=== PATIENT | male | born 1990 ===

== ENCOUNTER 2019-12-28 17:09 | Emergency (ER) | payer SELFPAY ==
--- NOTE | 2019-12-28 17:46 | RAD ---
Right ankle 3 views: 12/28/2019 COMPARISON: None HISTORY: Injury, trauma, pain FINDINGS: Prominent lateral soft tissue swelling. Talar dome and ankle mortise are intact. No displac ed fracture or dislocation. Enthesophyte formation noted at the insertion of the Achilles tendon. Mild medial soft tissue swelling noted as well. IMPRESSION: Soft tissue swelling with no associated fracture or dislocation.
[2019-12-28] MEDS ORDERED: Ibuprofen 800 MG TAB ONE (18:36)
[2019-12-28 18:40] LABS: Amphetamine Not Detected (NotDetected); Barbiturates Screen Not Detected (NotDetected); Benzodiazepine Screen Not Detected (NotDetected); Cocaine Metabolite Screen Not Detected (NotDetected); Medtox Control Line Valid? VALID (VALID); Medtox Reader # READER 4; Methadone Not Detected (NotDetected); Methamphetamine Not Detected (NotDetected); Opiate Screen Not Detected (NotDetected); Oxycodone Screen Not Detected (NotDetected); Phencyclidine (PCP) Not Detected (NotDetected); THC/Cannabinoid Screen Not Detected (NotDetected); Tricyclic Screen Not Detected (NotDetected)
== END 2019-12-28 18:40 | disposition home or self-care (01) ==
LOC: ERS 17:09
DX: S93.401A Sprain of unspecified ligament of right ankle, initial encounter (principal); F17.210 Nicotine dependence, cigarettes, uncomplicated; W18.30XA Fall on same level, unspecified, initial encounter; Y99.0 Civilian activity done for income or pay
CPT/HCPCS: 80306